=== PATIENT | female | born 1980 | race Caucasian/White ===

== ENCOUNTER 2016-10-11 15:49 | Emergency (ER) | payer BC, OTHER ==
[2016-10-11 16:02] VITALS: BP 159/93; PULSE 100; TEMP 98.3
[2016-10-11] MEDS ORDERED: IBUPROFEN 400 MG TABLET (FP) PO ONE ×2 (17:51→17:53)
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
== END 2016-10-11 18:41 | disposition home or self-care (01) ==
LOC: JERFT 15:49
DX: S39.012A Strain of muscle, fascia and tendon of lower back, initial encounter (principal); V43.52XA Car driver injured in collision with other type car in traffic accident, initial encounter; Y92.414 Local residential or business street as the place of occurrence of the external cause; Y93.89 Activity, other specified; Y99.8 Other external cause status
CPT/HCPCS: 99281-25

== ENCOUNTER 2021-10-17 06:17 | Inpatient (IN) | payer BC, OTHER ==
[2021-10-12 10:26] VITALS: BMI 34.3
[2021-10-17] MEDS ORDERED: BUPIVACAINE LIPOSOME/PF (EXPAREL) 266 MG/20 ML VIAL ONE (07:27)
[2021-10-17] MEDS ORDERED: MIDAZOLAM HCL 2 MG/2 ML SINGLE DOSE VIAL ONE (07:27)
[2021-10-17] MEDS ORDERED: BUPIVACAINE HCL/PF 0.5% (5 MG/ML) 30 ML VIAL IJ ONE (07:27)
[2021-10-17] MEDS ORDERED: BUPIVACAINE HCL/PF 0.25% (2.5MG/ML) 10 ML VIAL ONE (07:48)
[2021-10-17] MEDS ORDERED: LIDOCAINE HCL/PF 2% SDV 5ML VIAL ONE (07:55)
[2021-10-17] MEDS ORDERED: PROPOFOL 20 ML ONE ×2 (07:55)
[2021-10-17] MEDS ORDERED: DEXAMETHASONE SOD PHOSPHATE 4 MG/1 ML VIAL ONE (07:55)
[2021-10-17] MEDS ORDERED: ceFAZolin SODIUM 1 GM VIAL ONE (07:55)
[2021-10-17] MEDS ORDERED: ONDANSETRON 4 MG/2 ML VIAL ONE (07:55)
[2021-10-17] MEDS ORDERED: ROCURONIUM BROMIDE 50 MG/5 ML SYRINGE ONE ×2 (07:55→09:03)
[2021-10-17] MEDS ORDERED: fentaNYL CITRATE 250 MCG/5 ML VIAL ONE (07:56)
[2021-10-17] MEDS ORDERED: KETAMINE HCL 200 MG/20 ML VIAL ONE (07:57)
[2021-10-17] MEDS ORDERED: NEOSTIGMINE METHYLSULFATE 0.5 MG/1 ML - 10 ML MDV ONE (10:38)
[2021-10-17] MEDS ORDERED: GLYCOPYRROLATE 0.2 MG/1 ML VIAL ONE ×2 (10:38→10:50)
[2021-10-17] MEDS ORDERED: HYDROmorphone HCL/PF 1 MG/ML VIAL IVPB PRN (11:29)
[2021-10-17] MEDS ORDERED: LACTATED RINGERS SOLUTION 1,000 ML IV SCH (11:45)
[2021-10-17] MEDS: ONDANSETRON 4 MG/2 ML VIAL IVPUSH PRN ×3 (11:50→20:24)
[2021-10-17] MEDS ORDERED: FAMOTIDINE 20 MG/50 ML IVPB 20 MG/50 ML MG IVPB ONE ×2 (11:52→12:04)
[2021-10-17] MEDS: METOCLOPRAMIDE HCL INJECTION 10 MG/2 ML VIAL IVPUSH SCH ×3 (11:55→22:57)
[2021-10-17] MEDS ORDERED: FAMOTIDINE 20 MG PREMIXED IVPB IVPB ONE (12:00)
[2021-10-17 12:12] LABS: HEMATOCRIT 38.4 % (32.4-45.2); HEMOGLOBIN 12.9 G/dL (10.7-15.3); MCH 29.1 pg (25.7-33.7); MCHC 33.5 g/dl (32.0-36.0); MEAN CELL VOLUME 86.6 fl (80-96); MEAN PLT VOLUME 9.7 fl (7.5-11.1); PLATELET COUNT 235.2 10^3/uL (134-434); RBC 4.43 10^6/uL (3.60-5.2); RDW 13.5 % (11.6-15.6); WHITE BLOOD COUNT 13.7 10^3/uL (4.0-10.8)
[2021-10-17 12:20] LABS: ALBUMIN 3.8 g/dl (3.4-5.0); BILIRUBIN,TOTAL 0.5 mg/dl (0.2-1); CALCIUM 8.7 mg/dl (8.5-10); CREATININE 0.8 mg/dl (0.55-1.3)
[2021-10-17] MEDS: HYDROmorphone HCL/PF 1 MG/ML VIAL IVPB PRN (20:25)
[2021-10-17 21:01] LABS: ALBUMIN 3.9 g/dl (3.4-5.0); BILIRUBIN,TOTAL 0.7 mg/dl (0.2-1); CALCIUM 8.6 mg/dl (8.5-10); CREATININE 0.6 mg/dl (0.55-1.3); TOT PROT 7.5 g/dl (6.4-8.2)
[2021-10-17 21:14] LABS: HEMOGLOBIN 13.6 G/dL (10.7-15.3); MCH 29.2 pg (25.7-33.7); MCHC 33.9 g/dl (32.0-36.0); MEAN CELL VOLUME 86.2 fl (80-96); MEAN PLT VOLUME 9.8 fl (7.5-11.1); PLATELET COUNT 222.3 10^3/uL (134-434); RBC 4.64 10^6/uL (3.60-5.2); RDW 13.9 % (11.6-15.6); WHITE BLOOD COUNT 11.4 10^3/uL (4.0-10.8)
[2021-10-17] MEDS: FAMOTIDINE 20 MG/50 ML IVPB 20 MG/50 ML MG IVPB SCH (21:44)
[2021-10-18] MEDS: METOCLOPRAMIDE HCL INJECTION 10 MG/2 ML VIAL IVPUSH SCH ×2 (05:56→11:56)
[2021-10-18] MEDS: SODIUM CHLORIDE 1,000 ML IV SCH ×2 (05:56→09:53)
[2021-10-18] MEDS: HYDROmorphone HCL/PF 1 MG/ML VIAL IVPB PRN (06:02)
[2021-10-18 08:44] VITALS: TEMP 98.2
[2021-10-18] MEDS: FAMOTIDINE 20 MG/50 ML IVPB 20 MG/50 ML MG IVPB SCH (09:16)
[2021-10-18 09:45] LABS: ALBUMIN 3.7 g/dl (3.4-5.0); BILIRUBIN,TOTAL 0.8 mg/dl (0.2-1); CALCIUM 8.6 mg/dl (8.5-10); CREATININE 0.7 mg/dl (0.55-1.3)
[2021-10-18 10:24] LABS: HEMATOCRIT 39.9 % (32.4-45.2); HEMOGLOBIN 13.4 G/dL (10.7-15.3); MCH 29.1 pg (25.7-33.7); MCHC 33.5 g/dl (32.0-36.0); MEAN PLT VOLUME 9.7 fl (7.5-11.1); PLATELET COUNT 244.2 10^3/uL (134-434); RBC 4.59 10^6/uL (3.60-5.2); RDW 13.9 % (11.6-15.6)
[2021-10-18] MEDS ORDERED: oxyCODONE HCL 5 MG TABLET PO PRN (10:32)
[2021-10-18] MEDS ORDERED: ACETAMINOPHEN 325 MG TABLET (FP) PO PRN (10:32)
[2021-10-18] MEDS ORDERED: SODIUM CHLORIDE 1,000 ML IV SCH (10:45)
[2021-10-18 14:36] VITALS: BP 137/78; PULSE 109
== END 2021-10-18 15:42 | disposition home or self-care (01) | DRG 422 ==
LOC: FM/S 06:17
PROVIDERS: ADMIT Surgery; ATTEND Surgery
PROC: 0DJ04ZZ Inspection of Upper Intestinal Tract, Percutaneous Endoscopic Approach (ICD-10-PCS; 2021-10-17)
PROC: 0DB64Z3 Excision of Stomach, Percutaneous Endoscopic Approach, Vertical (ICD-10-PCS; principal; 2021-10-17 09:02)
PROC: 0FB24ZX Excision of Left Lobe Liver, Percutaneous Endoscopic Approach, Diagnostic (ICD-10-PCS; 2021-10-17 09:02)
DX: R16.0 Hepatomegaly, not elsewhere classified (principal); E66.01 Morbid (severe) obesity due to excess calories; Z68.34 Body mass index [BMI] 34.0-34.9, adult
CPT/HCPCS: 36415; 74240-TC-FY; 80053; 81025; 85027; 86850; 86900; 86901; 86922; 88305-TC; 94760